=== PATIENT | male | born 1945 | race Caucasian/White ===

== ENCOUNTER → 2017-11-05 09:09 | Outpatient (CLI) | payer MEDICARE, OTHER, SELFPAY ==
--- NOTE | 2017-11-05 | DI.CT.S_ITS ---
PROCEDURE: CT CHEST W CON INDICATIONS: COUGH TECHNIQUE: After the administration of intravenous contrast, 5 mm thick sections acquired from the pulmonary apices to the posterior costophrenic angles. 7 mm thick coronal and sagittal MIP reformats were acquired. For radiation dose reduction, the following was used: automated exposure control, adjustment of mA and/or kV according to patient size. COMPARISON: [facility], , CHEST 2 VIEW, 03/30/2017, 9:47. FINDINGS: Image quality: Excellent. Lungs and pleura: Partially calcified pleural-parenchymal biapical scarring is reidentified. Minimal linear scar in the left lower lobe posteriorly. Remainder of lungs clear. No acute air space opacities. No pleural effusions or pneumothorax. Central and peripheral airways are patent and normal in caliber. Mediastinum: Heart size is normal. Mild coronary artery calcifications. No pericardial effusion. No mediastinal or hilar adenopathy by size criteria. Thoracic aorta and central pulmonary arteries are normal in size. Esophagus is normal in caliber. No hiatal hernia. Bones and chest wall: No suspicious bony lesions. No vertebral body compression fractures. No axillary or supraclavicular adenopathy by size criteria. Thyroid gland contains a 7 mm hypodense nodule on the right. Abdomen: Visualized upper abdominal solid organs appear normal. Upper abdominal bowel loops are normal in caliber. Gallbladder is surgically absent. IMPRESSION: 1. Biapical pleural-parenchymal scarring with calcifications, likely representing prior granulomatous infection, activity of which cannot be determined radiographically. No appreciable interval change is demonstrated considering differences in imaging modalities. 2. No additional cardiopulmonary abnormalities demonstrated. Mild coronary artery calcifications. 3. Status post cholecystectomy. Dictated by: Gerson Castro M.D. on 11/05/2017 at 10:23 Approved by: Gerson Castro M.D. on 11/05/2017 at 10:29
== END ==
PROVIDERS: PCP Internal Medicine; Visit Provider Internal Medicine
DX: R06.00 Dyspnea, unspecified (principal); R05 Cough; I25.10 Atherosclerotic heart disease of native coronary artery without angina pectoris; Z90.49 Acquired absence of other specified parts of digestive tract
CPT/HCPCS: 71250

== ENCOUNTER → 2018-07-11 13:47 | Outpatient (CLI) | payer MEDICARE, OTHER, SELFPAY ==
--- NOTE | 2018-07-11 | DI.ECHO.S_ITS ---
[facility]---------+ [facility] +---------+ : : [address] [address] : : : : [id number] : : : : Phone: [phone]+ Echocardiogram Report + + :Name: JENIFER JOHNSTON Study Date: 07/11/2018 Height: 73 in : :[facility] Weight: 167 lb : : Gender: Male BSA: 2.0 m2 : :: 1945 Age: 72 yrs BP: 160/80 mmHg: :Reason For Study: TACHYCARDIA, ESSENTIAL HYPERTENSION : : Performed By: Rosaline Lamas : :Referring: OBDULIO ESPINOZA : + + Interpretation Summary Normal sinus rhythm Normal LV size, wall thickness, wall motion and LV systolic function. EF is 60-65%. Normal diastolic dysfunction. Borderline LA enlargement; otherwise normal chamber sizes. No significant valvular abnormalities. No prior study available for comparison. Procedure: A two-dimensional transthoracic echocardiogram with color flow and Doppler was performed. The study quality was technically good. There is no prior echocardiogram noted for this patient. The patient was in normal sinus rhythm during the exam. Left Ventricle: The left ventricle is normal in size, wall thickness, and systolic function without any focal wall motion abnormalities. There is no ventricular septal defect visualized. The ejection fraction is estimated to be 60-65%. Diastolic parameters suggest probable normal left ventricular diastolic function and normal filling pressures. Right Ventricle: The right ventricle is normal in size and function. Atria: The left atrium is borderline dilated. Right atrial size is normal. There is no Doppler evidence for an interatrial shunt. Mitral Valve: The mitral valve leaflets are slightly calcified. There is trace mitral regurgitation. Aortic Valve: The aortic valve is normal in structure and function. The aortic valve is slightly calcified. No aortic regurgitation is present. Tricuspid Valve: The tricuspid valve leaflets are thin and pliable. There is mild tricuspid regurgitation. The right ventricular systolic pressure is estimated to be at least 30 mmHg based on an estimated right atrial pressure of 3 mm Hg. Pulmonic Valve: The pulmonic valve is normal in structure and function. There is a trace or physiologic amount of pulmonic regurgitation. Great Vessels: The aortic root is normal size. The ascending aorta is at the upper limits of normal in size. The aortic arch is normal in size. The IVC is of normal diameter and collapses greater than 50% with a sniff. This suggests a low right atrial pressure of 3 mm Hg. Pericardium/ Pleura There is no pericardial effusion. MMode/2D Measurements & Calculations LVIDd: 4.7 cm LVOT diam: 1.9 cm LVIDs: 2.6 cm Ao root diam: 3.6 cm FS: 44.6 % Aortic Jxn: 2.6 cm EPSS: 0.69 cm asc Aorta Diam: 3.4 cm IVSd: 0.90 cm Ao Arch Diam (Prox Trans): 3.0 cm LVPWd: 0.84 cm LV veloz. diameter/BSA (cm/m^2): 2.4 LV sys. diameter/BSA (cm/m^2): 1.3 LA A2 area: 21.4 cm2 RA long axis: 4.9 cm LA A4 area: 19.6 cm2 RA area: 12.7 cm2 LA length (vol): 5.2 cm RA vol: 28.0 ml LA vol: 68.5 ml RA : 14.1 ml/m2 LA vol index: 34.3 ml/m2 IVC diam: 1.7 cm RVD1 (basal): 3.8 cm RVD2 (mid): 2.9 cm TAPSE: 2.8 cm Doppler Measurements & Calculations Ao V2 max: 117.2 cm/sec LVOT Max Benito: 109.8 cm/sec Ao V2 mean: 79.2 cm/sec LV V1 max P.8 mmHg Ao max P.5 mmHg LV V1 VTI: 23.8 cm Ao mean P.9 mmHg LALY(I,D): 2.9 cm2 Ao V2 VTI: 24.1 cm LALY(V,D): 2.8 cm2 sev ratio: 0.99 LALY indexed to BSA (cm^2/m^2): 1.5 MV E max benito: 93.9 cm/sec TR max benito: 257.4 cm/sec MV A max benito: 58.5 cm/sec TR max P.5 mmHg MV E/A: 1.6 PA V2 max: 92.1 cm/sec Med Peak E' Benito: 8.2 cm/sec PA V2 mean: 68.8 cm/sec E/E' med: 11.4 PA mean P.0 mmHg Lat Peak E' Benito: 10.3 cm/sec PA Accel Time: 0.11 sec E/E' lat: 9.1 E/e' average: 10.2 MV dec time: 0.18 sec MV P1/2t: 53.8 msec MV P1/2t max benito: 93.9 cm/sec SV(LVOT): 71.0 ml MVA(P1/2t): 4.1 cm2 Electronically signed by: Zee Braun M.D. on Reading Physician:07/12/2018 03:21 AM
== END ==
PROVIDERS: PCP Internal Medicine; Visit Provider Physician Assistant
DX: I07.1 Rheumatic tricuspid insufficiency (principal); R00.0 Tachycardia, unspecified; I10 Essential (primary) hypertension
CPT/HCPCS: 93306

== ENCOUNTER → 2019-03-18 15:04 | Outpatient (CLI) | payer MEDICARE, OTHER, SELFPAY ==
--- NOTE | 2019-03-18 | DI.US.S_ITS ---
PROCEDURE: US ABD AORTA ANEURYSM SCREEN INDICATIONS: AAA SCREENING TECHNIQUE: Real time scanning was performed of the aorta and iliac arteries, with image documentation. COMPARISON: None. FINDINGS: Aorta: Proximal aortic diameter measures 2.4 cm. Mid-aorta measures 2.0 cm. Distal aortic diameter is 1.7 cm. Iliac arteries: Right common iliac artery measures 1.4 cm. Left common iliac artery measures 1.1 cm. IMPRESSION: Negative examination. No aneurysm Dictated by: Yordy Esparza M.D. on 03/18/2019 at 15:59 Approved by: Yordy Esparza M.D. on 03/18/2019 at 15:59
== END ==
PROVIDERS: PCP Internal Medicine; Visit Provider Internal Medicine
DX: Z13.6 Encounter for screening for cardiovascular disorders (principal)
CPT/HCPCS: 76706

== ENCOUNTER → 2019-06-16 09:56 | Outpatient (CLI) | payer MEDICARE, OTHER, SELFPAY | PROVIDERS: PCP Internal Medicine; Referring Provider Dentist Oral and Maxillofacial Surgery; Visit Provider Family Medicine | DX: L59.8 Other specified disorders of the skin and subcutaneous tissue related to radiation (principal); Z92.3 Personal history of irradiation; J44.9 Chronic obstructive pulmonary disease, unspecified | CPT/HCPCS: 71046; 99203; 99212 ==

== ENCOUNTER → 2019-06-16 11:34 | Outpatient (CLI) | payer MEDICARE, OTHER, SELFPAY ==
--- NOTE | 2019-06-16 | DI.RAD.S_ITS ---
PROCEDURE: XR CHEST 2V INDICATIONS: COPD TECHNIQUE: 2 views of the chest were acquired. COMPARISON: [facility], , CHEST 2 VIEW, 03/30/2017, 9:47. FINDINGS: Surgical changes and devices: None. Lungs and pleura: Lungs are clear. No pleural effusions or pneumothorax. Mediastinum: Mediastinal contours are normal. Heart size is normal. Bones and chest wall: No suspicious bony abnormalities. Soft tissues appear unremarkable. IMPRESSION: Normal for age, source of current shortness of breath symptoms is not seen. Dictated by: Alden Noonan M.D. on 06/16/2019 at 13:10 Approved by: Alden Noonan M.D. on 06/16/2019 at 13:10
== END ==
PROVIDERS: PCP Internal Medicine; Referring Provider Family Medicine; Visit Provider Family Medicine
DX: J44.9 Chronic obstructive pulmonary disease, unspecified (principal)
CPT/HCPCS: 71046

== ENCOUNTER → 2020-05-18 07:57 | Outpatient (CLI) | payer MEDICARE, OTHER, SELFPAY ==
[2020-05-18] MEDS: COVID-19 VACC #1, MRNA(MOD) 100 MCG/0.5 ML VIAL IM (08:04)
== END ==
PROVIDERS: PCP Internal Medicine; Visit Provider Internal Medicine
DX: Z23 Encounter for immunization (principal)
CPT/HCPCS: 0011A; 91301

== ENCOUNTER → 2020-06-15 08:13 | Outpatient (CLI) | payer MEDICARE, OTHER, SELFPAY ==
[2020-06-15] MEDS: COVID-19 VACC #2, MRNA(MOD) 100 MCG/0.5 ML VIAL IM (08:22)
== END ==
PROVIDERS: PCP Internal Medicine; Visit Provider Internal Medicine
DX: Z23 Encounter for immunization (principal)
CPT/HCPCS: 0012A; 91301

== ENCOUNTER 2021-07-25 09:30 | Outpatient (RCR) | payer MEDICARE, OTHER, SELFPAY ==
--- NOTE | 2021-07-11 17:46 | ST.OPIE ---
Addendum entered and electronically signed by Vazquez Wood 07/25/21 15:19: POC Dates: 07/11/21 - 10/06/21 Insurance: Medicare Referring Physician: Dr. Gwyn Griffiths Reason for Referral: Dysphagia, Unspecified Session Start-End Times: 1430 - 1530 Original Note: Visit Care Team Role Provider Type Gwyn Griffiths MD Attending Provider Physician Family Provider Primary Care Provider Referring Provider Specialty: Internal Medicine Address: [address] [place] [address], [address], [facility] Email: [email or web address] Speech-Language Pathology Initial Evaluation [employer]ERIAL[employer]NER Clinical Swallow Evaluation Start: 07/11/21 14:36 Freq: Status: Active Protocol: Document 07/11/21 14:36 OJNI (Rec: 07/11/21 14:55 JONI [id number]) Clinical Swallow Evaluation Patient Information History Pt is a 75-yr-old male with a hx of COPD diagnosed ~8 yrs ago and 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 In 2004 he underwent surgical removal of lymph nodes at left side of neck, had a tracheotomy which as been removed, and received radiation (5x/wk for 4-6 wks) and chemotherapy treatments. He c/o occasional problems with speech and swallow which have become more frequent and noticeable to him in the past 6-9 months, though he reported his thinks it's been present for 2-3 yrs. Since then, he is not able to open jaw as much as he was prior, which increases difficulty eating certain foods, such as a cheeseburger. The pt denied coughing/choking but has occasional difficulty getting foods and liquid down, typically smaller vs bulky foods. He manages this with repeated swallows. He denied trouble swallowing pills, which he swallows dry. There are no foods he avoids d/t swallow difficulties. He does experience occ nasal regurgitation and noted that it sounds like I'm talking through my nose, which was also perceived by the MATERIALS PLANNER. Regarding speech, the pt notes difficulty producing some consonants, reduced rate of speech as per PLOF, and increased effort with speech articulation. Example words that were troublesome were bulk and glass, exhibiting difficulty with /b/ and consonant blends. He also noted that very occasionally, he is unable to produce voice and speech results in whispers . These episodes appear to resolve independently and happen ~once every 3 wks. As a result of these speech challenges, he avoids conversation with others when possible. Subjective Observations The pt arrived on time and provided case history supplemental to medical records. Agreed to target swallow evaluation today with speech evaluation at next session. Reported by Patient Other Symptoms Difficulty swallowing liquids, Difficulty swallowing solids Current Diet Regular,Thin liquids Baseline Feeding Method Independent in self-feeding Objective Assessment Mental Status Alert,Responsive,Cooperative Oral Integrity WFL Dentition Missing teeth Observation of Lips at Rest Right sided weakness/Drooping Pucker Within normal limits Lip Retraction Within normal limits Alternating Pucker/Lip Retraction Within normal limits Tongue Function Mild impairment Observations of Tongue at Rest Within normal limits Tongue Protrusion Deviates to the right Tongue Lateralization Reduced strength Jaw Function Within normal limits Observations of Jaw at Rest Within normal limits Jaw Opening Within normal limits Jaw Closing Within normal limits Jaw Lateralization Within normal limits Hard/Soft Palate Function Mild impairment Observations of Hard/Soft Palate Abnormal uvula Gag Reflex Within normal limits Nasality Hypernasal Phonation Reduced loudness Comment Missing molars on left side. Pt reports this does not interfere with mastication. Food and Liquid Trials Position During Assessment Upright (90 degrees) Liquids Trialed Thin Solids Trialed Puree,Dysphagia Mechanical, Mechanical Soft,Regular Administration Type Self-feeding Oral Impairment Within functional limits Oral Phase Comments Pt mostly masticated on right side d/t missing molars on left side. Pharyngeal Impairment Mildly-Moderately impaired Pharyngeal Phase Comments Multiple swallows required to clear solids from pharynx. Throat clearing was noted x3, twice with solids and once with liquid wash to assist pharyngeal clearance of solids. Fatigue/Endurance Endurance WNL Findings Swallowing Function Oropharyngeal phase dysphagia Severity of Swallow Impairment Mildly-moderately impaired Contributing Factors to Swallow Reduced oral strength/ Impairment coordination/sensation, Mastication inefficiency, Impaired airway protection, Excessive pharyngeal residue Prognosis Good Based on Cognitive status,Family support,Age,Duration of symptoms/severity Comment Discussed POC with the pt, including recommendation of MBS, particularly given the pt 's hx of radiation. The pt was in agreement with this recommendation. Initiated education and training in swallow exercises to improve strength and coordination of pharyngeal musculature to reduce pharyngeal residue and need for multiple swallows. Instructions were provided orally with demonstration and in writing. The pt returned demonstration, performing per instructions. The pt's speech was perceived as mildly imprecise and moderately slow with occasional need for repeated attempts to produce words, particularly those with consonant blends, which he sometimes spelled instead of stating. Vocal resonance was perceived as hypernasal, although elevation of soft palate was observed. Unable to determine extent of palatopharyngeal contact. Will be better observed during MBS . Impact on Safety and Functioning Risk for aspiration Comments Mild risk of aspiration Recommendations Instrumental Assessment Yes Swallowing Treatment Yes Frequency 1x/wk initially, taper over course of treatment. Duration for 12 wks Recommended Solids Regular Recommended Liquids Thin Other Recommendations Add moisture Safety Precautions/Swallowing Remain upright (90 degrees) Recommendations during all oral intake,Small bites and sips when eating, Slow rate; swallow between bites Medication Recommendations As Tolerated Education Patient/Caregiver Education Described results of evaluation,Patient expressed understanding of evaluation, Patient expressed agreement with goals & treatment plans, Patient expressed understanding of safety precautions,Patient expressed understanding of feeding recommendations,Patient requires further education/ training Goals Short-term Goals 1. The pt will participate in Modified Barium Swallow Study to further assess swallow function/safety and to guide POC. 2. The pt will participate in evaluation of motor speech to guide POC. Additional goals to be established after assessment. 3. The pt will use safe swallow strategies to reduce risk of aspiration and increase ease with oral consumption. 4. The pt will perform exercises to improve efficiency of swallow, reduce aspiration, and increase ease with oral consumption. Long-term Goals 1. The pt will improve tolerance of regular textures and thin liquids to WNL.
--- NOTE | 2021-08-01 15:27 | ST.OPDS ---
Visit Care Team Role Provider Type Gwyn Griffiths MD Attending Provider Physician Family Provider Primary Care Provider Referring Provider Address: [address] [place] [address], [address], [place], [address] POLISH MAKER Treatment Note POLISH MAKER Treatment Note Start: 07/25/21 15:14 Freq: Status: Active Protocol: Document 08/01/21 15:26 JONI (Rec: 08/01/21 15:27 JONI [id number]) Speech Pathology Treatment Note Setting Treatment Setting Outpatient Care Visit Type Note Type Discharge Summary General Information Patient History Pt is a 75-yr-old male with a hx of COPD diagnosed ~8 yrs ago and 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 In 2004 he underwent surgical removal of lymph nodes at left side of neck, had a tracheotomy which as been removed, and received radiation (5x/wk for 4-6 wks) and chemotherapy treatments. He c/o occasional problems with speech and swallow which have become more frequent and noticeable to him in the past 6-9 months, though he reported his thinks it's been present for 2-3 yrs. Since then, he is not able to open jaw as much as he was prior, which increases difficulty eating certain foods, such as a cheeseburger. The pt denied coughing/choking but has occasional difficulty getting foods and liquid down, typically smaller vs bulky foods. He manages this with repeated swallows. He denied trouble swallowing pills, which he swallows dry. There are no foods he avoids d/t swallow difficulties. He does experience occ nasal regurgitation and noted that it sounds like I'm talking through my nose, which was also perceived by the POLISH MAKER. Regarding speech, the pt notes difficulty producing some consonants, reduced rate of speech as per PLOF, and increased effort with speech articulation. Example words that were troublesome were bulk and glass, exhibiting difficulty with /b/ and consonant blends. He also noted that very occasionally, he is unable to produce voice and speech results in whispers . These episodes appear to resolve independently and happen ~once every 3 wks. As a result of these speech challenges, he avoids conversation with others when possible. Subjective Observations/Patient Presentation The pt called this clinic the day after his last appt and requested cancelation of all appts, stating he did not need therapy. Goals have not been met. Pt is discharged from services per his request. Chief Complaint(s) Speech,Swallowing,Voice Objective Short Term Goals 1. The pt will participate in Modified Barium Swallow Study to further assess swallow function/safety and to guide POC. 2. The pt will participate in evaluation of motor speech to guide POC. Additional goals to be established after assessment. 3. The pt will use safe swallow strategies to reduce risk of aspiration and increase ease with oral consumption. 4. The pt will perform exercises to improve efficiency of swallow, reduce aspiration, and increase ease with oral consumption. Fpc Goals 1. The pt will improve tolerance of regular textures and thin liquids to WNL. 2. The pt will produce continuous phonation and vocal quality WNL in conversation to improve his ability to communicate effectively with others in various communication settings. Plan Therapy Recommendations Discharge from Speech Therapy
== END 2021-08-04 14:19 ==
LOC: SP 09:30
PROVIDERS: Family Provider Internal Medicine; PCP Internal Medicine; Referring Provider Internal Medicine; Visit Provider Internal Medicine
DX: R13.10 Dysphagia, unspecified (principal); R47.1 Dysarthria and anarthria
CPT/HCPCS: 92507; 92524; 92526; 92610

== ENCOUNTER → 2021-12-05 11:08 | Outpatient (CLI) | payer MEDICARE, OTHER, SELFPAY ==
[2021-12-11 10:46] LABS: Percent Free Testosterone 3.58 % (1.50-4.20); Testosterone Free 9.39 ng/dL (5.00-21.00); Testosterone Total 262.3 ng/dL (264.0-916.0)
== END ==
PROVIDERS: Family Provider Internal Medicine; PCP Internal Medicine; Referring Provider Internal Medicine; Visit Provider Internal Medicine
DX: N52.9 Male erectile dysfunction, unspecified (principal)
CPT/HCPCS: 36415; 84402; 84403

== ENCOUNTER → 2022-01-19 08:10 | Outpatient (CLI) | payer MEDICARE, OTHER, SELFPAY ==
--- NOTE | 2022-01-19 08:13 | DI.RAD.S_ITS ---
PROCEDURE: XR KUB INDICATIONS: kidney stones TECHNIQUE: One view of the abdomen acquired. COMPARISON: [facility], CT, CT ABDOMEN PELVIS WITH CONTRAST, 12/28/2017, 14:59. FINDINGS: Surgical changes and devices: Right upper quadrant clips are present. Bowel: Bowel gas pattern is normal. Soft tissues: No suspicious abdominal calcifications. No definitive stones are noted overlying the renal shadows. Multiple rounded areas of calcification are noted overlying the bladder shadow. There is a confluent area of calcification within the posterior right lateral bladder in 2018. Visualized solid organ contours appear normal in size. Bones: No suspicious bony lesions. IMPRESSION: No calcifications overlying the renal shadows. Multiple calcifications are noted overlying the bladder shadow which could represent multiple passed stones or other sources of bladder calcification. Additionally, some may represent phleboliths. They appear more numerous when compared to prior exam in 2018. CT is recommended as clinically indicated for further evaluation. Dictated by: Christel Multani M.D. on 01/19/2022 at 11:52 Approved by: Christel Multani M.D. on 01/19/2022 at 11:54
[2022-01-25 07:36] LABS: Testosterone Fr+Wkly bound 40.8 ng/dL (40.0-250.0); Testosterone, Total 370.6 ng/dL (264.0-916.0)
== END ==
PROVIDERS: Family Provider Internal Medicine; PCP Internal Medicine; Referring Provider Urology; Visit Provider Urology
DX: N20.0 Calculus of kidney (principal); N52.9 Male erectile dysfunction, unspecified
CPT/HCPCS: 36415; 74018; 84403

== ENCOUNTER → 2022-01-26 10:37 | Outpatient (CLI) | payer MEDICARE, OTHER, SELFPAY ==
[2022-02-08 11:22] LABS: Testosterone % Fr + Wkly bound 12.6 % (9.0-46.0); Testosterone Fr+Wkly bound 46.8 ng/dL (40.0-250.0); Testosterone, Total 371.2 ng/dL (264.0-916.0)
== END ==
PROVIDERS: Family Provider Internal Medicine; PCP Internal Medicine; Referring Provider Urology; Visit Provider Urology
DX: N52.9 Male erectile dysfunction, unspecified (principal)
CPT/HCPCS: 36415; 84403

== ENCOUNTER → 2022-03-07 13:11 | Outpatient (CLI) | payer MEDICARE, OTHER, SELFPAY ==
--- NOTE | 2022-03-07 13:13 | DI.CT.S_ITS ---
PROCEDURE: CT PEL WO CON INDICATIONS: ?bladder calc TECHNIQUE: 5 mm thick sections acquired from the iliac crests to the symphysis. 5 mm coronal and sagittal reformats were then performed. For radiation dose reduction, the following was used: automated exposure control, adjustment of mA and/or kV according to patient size. No IV or oral contrast administered. COMPARISON: [facility], CR, XR KUB, 01/19/2022, 8:15. [facility], CT, CT ABDOMEN PELVIS WITH CONTRAST, 12/28/2017, 14:59. FINDINGS: Image quality: Adequate. Peritoneum and bowel: No free air or free fluid. Mild sigmoid colonic diverticulosis without evidence of acute diverticulitis. Genitourinary: Numerous (at least 10) small/subcentimeter stones present within the urinary bladder. Nonspecific coarse calcifications are also present within the prostate gland. The prostate gland and seminal vesicles are not well evaluated by CT. Nodes and vessels: No iliac, pelvic, or inguinal adenopathy by size criteria. Iliac vessels demonstrate normal size. Bones: No acute fracture visualized. IMPRESSION: Numerous small stones are present within the urinary bladder. Dictated by: Jb De Leon M.D. on 03/08/2022 at 10:07 Approved by: Jb De Leon M.D. on 03/08/2022 at 10:12
== END ==
PROVIDERS: Family Provider Internal Medicine; PCP Internal Medicine; Referring Provider Urology; Visit Provider Urology
DX: N20.0 Calculus of kidney (principal); N21.0 Calculus in bladder; K57.30 Diverticulosis of large intestine without perforation or abscess without bleeding
CPT/HCPCS: 72192

== ENCOUNTER → 2022-04-25 14:04 | Outpatient (CLI) | payer MEDICARE, OTHER, SELFPAY ==
[2022-04-25 15:24] LABS: COVID19 -Nasal RAPID Negative (Negative)
== END ==
PROVIDERS: Family Provider Internal Medicine; PCP Internal Medicine; Visit Provider Urology
DX: Z20.822 Contact with and (suspected) exposure to COVID-19 (principal)
CPT/HCPCS: 87635

== ENCOUNTER 2022-04-25 14:14 | Day surgery (SDC) | payer MEDICARE, OTHER, SELFPAY ==
[2022-04-21 10:16] VITALS: BMI 22.8
[2022-04-25] VITALS (8 sets, daily range): BP systolic 127–165; BP diastolic 76–102; PULSE 89–102; RESP 9–16; TEMP 36.2–36.3; O2SAT 96–97; BMI 22.8
[2022-04-25] MEDS: LACTATED RINGERS 1,000 ML 21 ML IV ×2 (14:33→17:01)
--- NOTE | 2022-04-25 15:08 | SUR.PREOP ---
AWAITING COVID RESULT. WAS DONE AT UROLOGY OFFICE AT 1400 LEGAL BILLING COORDINATOR
--- NOTE | 2022-04-25 15:35 | PM.PREOP ---
Pre-operative Note COVID-19 COVID-19 status: Negative Result date/Date tested (Pos, Neg/Pending): 04/25/22 Criteria for continued procedure: Delay expected to result in less-positive ultimate med/surg outcome and Non-surgical alternatives not available or appropriate per current SOC Interval Note History & Physical reviewed/Exam performed by Physician: Yes Changes to H&P: No
[2022-04-25] MEDS: CEFAZOLIN 2 GM/100 ML PREMIX 100 ML IV (16:05)
[2022-04-25] MEDS: LIDOCAINE 2% (GLYDO) 6 ML GEL TOP (16:15)
--- NOTE | 2022-04-25 16:25 | SUR.OPER ---
Lithotomy on padded OR bed, head on pillow, arms secured on padded arm boards at <90 degrees abduction. Legs secured in padded yellow fins stirrups.
--- NOTE | 2022-04-25 17:17 | PM.OP.1 ---
Procedure & Clinicians Procedure: Cystoscopy with mechanical cystolitholapaxy and evacuation of bladder calculi and fragments. Same procedure as scheduled: Yes Indications: This is a 76-year-old male presented with complaints of bladder outlet obstruction and hematuria. He was found to have numerous calculi in his bladder. He would previously had a stone but he had many many many stones. Most under a cm. Probably numbering 50. Patient presents this time for cystoscopy evacuation of stones mechanical and or laser cystolitholapaxy. Surgeon: Parminder Johnson Click Yes if Unassisted: Yes Anesthesia Type: General Operative Notes Findings: Urethral normal along its length. Prostate shows moderate approaching severe obstructive character with a moderate-sized median lobe. The bladder exhibits severe trabeculation cellules banding small diverticula and innumerable dark brown stones. Most under a cm but ranging in size from 3-4 mm up. They would not pass through the stone without ?crushing?. Had the end of the procedure it appeared that all fragments had been evacuated. Because the median lobe in the varicosities there was some bleeding which was controlled with a Bugbee electrode. Because the median lobe and the manipulation that was required a Gill catheter will be placed overnight the patient will come tomorrow for voiding trial. No other abnormalities were noted in the bladder. In the were no complications Closure Type: not applicable Specimen(s): none sent (Bladder stones and fragments) Applied: catheter (20 [place] 5 cc Gill catheter 13 cc in the balloon) Estimated Blood Loss (mL): 10 Blood products transfused: none Procedure in detail: Procedure in detail: After informed consent was obtained, the patient was identified and brought to the operating room where he is placed in a supine position on the table. Patient then had anesthesia induced and maintained. Ensuring an adequate level of anesthesia the patient was transitioned to the lithotomy position where he was prepped, draped, prepared for transfer urethral procedure. After prepping draping time-out ensuring an adequate level of anesthesia a 22 [place] cystoscope was passed through the urethra prostate and bladder were cystoscopy was performed with 30 and 70 degree lens. Then using the 12 degree lens and the mechanical lithotrite after having try to evacuate the stones the stones were then grasped in turn and ?crushed?. This was alternated with evacuation of the stones by flushing. As this proceeded the varicosities on the median lobe bled and therefore Bugbee electrode was inserted and these were controlled. Then each of the muscle bands of the detrusor had stone fragments evacuated and this was done from top to bottom side to side until all stone fragments were evacuated. With this done the stones were collected to be sent for compositional analysis. The bladder was left full and the 20 [place] catheter was passed through the urethra and into the bladder without difficulty the balloon was filled with 13 cc of sterile water and the catheter was placed to gravity drainage. Hemostasis was good there were no complications and the patient tolerated the procedure well at this point he was awakened taken to postanesthesia care unit. Complications: none Post-operative Condition: stable Disposition: PACU Plan for aftercare: Discharge to home patient to follow-up my office in the morning for catheter removal and voiding trial
[2022-04-25] MEDS: PHENAZOPYRIDINE 100 MG TABLET 200 MG PO (17:34)
[2022-04-25] MEDS: OXYBUTYNIN 5 MG TABLET PO (17:34)
--- NOTE | 2022-04-25 19:13 | SUR.PHASEI ---
1745: Noted when giving patient a cup of water that he had a swollen right upper lip. Per patient this was not there prior to surgery. On examination it was swollen and had a non open red streak on it.
[2022-04-29 21:39] LABS: Ca oxalate dihydrate 60 % (.); Ca oxalate monohydr 40 % (.); Size 5x7 mm (.)
== END 2022-04-25 18:49 | disposition home or self-care (01) ==
PROVIDERS: Family Provider Internal Medicine; PCP Internal Medicine; Referring Provider Urology; Visit Provider Urology
PROC: 0TCB8ZZ Extirpation of Matter from Bladder, Via Natural or Artificial Opening Endoscopic (ICD-10-PCS; CPT 52317; principal; 2022-04-25 15:30)
DX: N21.0 Calculus in bladder (principal); N40.1 Benign prostatic hyperplasia with lower urinary tract symptoms; N13.8 Other obstructive and reflux uropathy; Z20.822 Contact with and (suspected) exposure to COVID-19
CPT/HCPCS: 52317; 82365; 82962; 87635; C9803; J0690; J2405; J2704; J3010

== ENCOUNTER → 2022-04-26 15:18 | Outpatient (CLI) | payer MEDICARE, OTHER, SELFPAY | PROVIDERS: Family Provider Internal Medicine; PCP Internal Medicine; Visit Provider Urology | DX: N40.1 Benign prostatic hyperplasia with lower urinary tract symptoms (principal); N13.8 Other obstructive and reflux uropathy | CPT/HCPCS: 51702; 51798; 87086 ==

== ENCOUNTER → 2022-05-09 08:17 | Outpatient (CLI) | payer MEDICARE, OTHER, SELFPAY | PROVIDERS: Family Provider Internal Medicine; PCP Internal Medicine; Visit Provider Urology | DX: N21.0 Calculus in bladder (principal); N40.1 Benign prostatic hyperplasia with lower urinary tract symptoms; N13.8 Other obstructive and reflux uropathy; R33.9 Retention of urine, unspecified; Z87.442 Personal history of urinary calculi | CPT/HCPCS: 51798; 81002; 87086; 99214 ==

== ENCOUNTER → 2022-06-23 09:01 | Outpatient (CLI) | payer MEDICARE, OTHER, SELFPAY ==
--- NOTE | 2022-06-23 09:03 | DI.ECHO.S_ITS ---
[facility]---------+ [facility] +---------+ : : [address] [place] : : : : [id number] : : : : Phone: [phone] +---------+ Echocardiogram Report + + :Name: JENIFER JOHNSTON Study Date: 06/23/2022 Height: 72 in : :[facility] ReadingLocation: Weight: 163 lb : : Gender: Male BSA: 2.0 m2 : :: 1945 Age: 76 yrs BP: 163/81 mmHg: :Reason For Study: HYpertension : :Ordering Physician: ISMAEL, : :ALEX Jimenez Performed By: Sandrita Gutierrez : :Referring: ALEX GUEVARA : + + Interpretation Summary The ejection fraction is estimated to be 60-65%. Diastolic parameters suggest probable normal left ventricular diastolic function and normal filling pressures. The right ventricular systolic function is normal. The right ventricular systolic pressure is estimated to be at least 45.5 mmHg based on an estimated right atrial pressure of 15 mm Hg. The right ventricle is mild to moderately dilated. The right atrium is moderately dilated. There is mild tricuspid regurgitation. Procedure: A two-dimensional transthoracic echocardiogram with color flow and Doppler was performed. The study quality was technically good. The patient was in sinus rhythm with heart rates between 63-72 bpm during the exam. Left Ventricle: The left ventricle is normal in size and wall thickness. The ejection fraction is estimated to be 60-65%. There are no obvious focal wall motion abnormalities noted but poor endocardial definition reduces the sensitivity for the detection of such. Diastolic parameters suggest probable normal left ventricular diastolic function and normal filling pressures. Right Ventricle: The right ventricle is mild to moderately dilated. The right ventricular systolic function is normal. Atria: The left atrial size is normal. The right atrium is moderately dilated. There is no Doppler evidence for an interatrial shunt. Mitral Valve: The mitral valve is normal in structure and function. The mitral valve leaflets are slightly calcified. There is trace mitral regurgitation. Aortic Valve: The aortic valve is trileaflet. The aortic valve opens well. There is mild aortic valve sclerosis. There is no hemodynamically significant valvular aortic stenosis. There is trace aortic regurgitation. Tricuspid Valve: The tricuspid valve is normal in structure and function. There is mild tricuspid regurgitation. The right ventricular systolic pressure is estimated to be at least 45.5 mmHg based on an estimated right atrial pressure of 15 mm Hg. Pulmonic Valve: The pulmonic valve leaflets are thin and pliable; valve motion is normal. There is a trace or physiologic amount of pulmonic regurgitation. Great Vessels: The aortic root is normal size. The ascending aorta is normal in size. The pulmonary artery is normal size. The IVC is dilated (diameter is greater than 2.1 cm) and it collapses less than 50% with a sniff. This suggests a high right atrial pressure of 15 mm Hg. Pericardium/ Pleura There is no pericardial effusion. There is no pleural effusion. MMode/2D Measurements & Calculations LVIDd: 4.8 cm LVOT diam: 2.0 cm LVIDs: 3.1 cm Ao root diam: 3.6 cm FS: 36.1 % asc Aorta Diam: 3.2 cm EPSS: 0.27 cm IVSd: 0.79 cm LVPWd: 0.80 cm LV veloz. diameter/BSA (cm/m^2): 2.5 LV sys. diameter/BSA (cm/m^2): 1.6 LA A2 area: 16.5 cm2 RA long axis: 5.0 cm LA A4 area: 18.5 cm2 RA area: 21.4 cm2 LA length (vol): 5.0 cm RA vol: 77.8 ml LA vol: 52.2 ml RA : 39.8 ml/m2 LA vol index: 26.7 ml/m2 IVC diam: 2.3 cm RVD1 (basal): 4.9 cm TAPSE: 2.5 cm Doppler Measurements & Calculations Ao V2 max: 119.8 cm/sec LVOT Max Benito: 96.1 cm/sec Ao V2 mean: 84.8 cm/sec LV V1 max P.7 mmHg Ao max P.7 mmHg LV V1 VTI: 21.7 cm Ao mean P.2 mmHg LALY(I,D): 2.6 cm2 Ao V2 VTI: 27.6 cm LALY(V,D): 2.6 cm2 sev ratio: 0.79 LALY indexed to BSA (cm^2/m^2): 1.3 MV E max benito: 93.6 cm/sec TR max benito: 276.2 cm/sec MV A max benito: 57.9 cm/sec TR max P.5 mmHg MV E/A: 1.6 PA V2 max: 89.9 cm/sec Med Peak E' Benito: 9.5 cm/sec PA V2 mean: 68.3 cm/sec E/E' med: 9.8 PA mean P.0 mmHg Lat Peak E' Benito: 9.6 cm/sec E/E' lat: 9.8 E/e' average: 9.8 MV dec time: 0.26 sec MVA(VTI): 2.4 cm2 MV V2 mean: 61.5 cm/sec SV(LVOT): 70.5 ml MV mean P.7 mmHg MV V2 VTI: 29.0 cm Reading Physician:RUPA
[2022-06-23 10:09] LABS: Add Manual Diff / Slide Review NO; Basophils Absolute Auto 0 /uL (0-100); Basophils Percent Auto 0.6 % (0-2); Eosinophils Absolute Auto 200 /uL (0-450); Eosinophils Percent Auto 2.7 % (2-4); Hematocrit 43.2 % (41-53); Hemoglobin 14.4 g/dL (13.5-17.5); Lymphocytes Absolute Auto 1000 /uL (1100-4500); Mean Corpuscular HGB Conc 33.4 % (30-36); Mean Corpuscular Hemoglobin 32.8 PG (26-34); Monocytes Absolute Auto 600 /uL (0-900); Monocytes Percent Auto 10.5 % (3-14); Neutrophils Absolute Auto 4000 /uL (1500-7000); Neutrophils Percent Auto 69.2 % (50-75); Platelet Count 206 X10^3/uL (150-400); Red Blood Cell Count 4.41 X10^6/uL (4.5-5.9); Red Cell Distribution Width 14.4 % (11.6-14.8); White Blood Cell Count 5.8 X10^3/uL (4.5-11.0)
[2022-06-23 10:52] LABS: Alanine Aminotransferase 27 IU/L (<50); Albumin Globulin Ratio 1.4 (1.0-2.8); Alkaline Phosphatase 48 U/L (38-126); Aspartate Aminotransferase 32 IU/L (17-59); BUN Creatinine Ratio 15.3 (6-22); Bilirubin Total 1.1 mg/dL (0.2-1.3); Blood Urea Nitrogen 13 mg/dL (9-20); Calcium 9.3 mg/dL (8.4-10.2); Carbon Dioxide 31 mmol/L (22-32); Chloride 102 mmol/L (98-107); Cholesterol 179 mg/dL (140-199); Estimated Glomerular Filt Rate > 60 mL/min (>60); Globulin 2.8 g/dL (1.7-4.1); Glucose 104 mg/dL (80-110); HDL Cholesterol 107 mg/dL (40-60); HEMOLYSIS < 15 (0-50); LDL Cholesterol Calculated 63 mg/dL (<100); Potassium 4.5 mmol/L (3.4-5.1); Sodium 140 mmol/L (137-145); Total Protein 6.8 g/dL (6.3-8.2); Triglycerides 46 mg/dL (35-150)
[2022-06-23 11:16] LABS: TSH w/ Reflex to FT4 2.88 uIU/mL (0.47-4.68)
== END ==
PROVIDERS: Family Provider Internal Medicine; PCP Internal Medicine; Referring Provider Internal Medicine; Visit Provider Internal Medicine
DX: I08.2 Rheumatic disorders of both aortic and tricuspid valves (principal); N40.1 Benign prostatic hyperplasia with lower urinary tract symptoms; I10 Essential (primary) hypertension; N13.8 Other obstructive and reflux uropathy; R13.10 Dysphagia, unspecified
CPT/HCPCS: 36415; 80053; 80061; 84443; 85025; 93306

== ENCOUNTER → 2023-02-22 16:58 | Outpatient (CLI) | payer MEDICARE, OTHER, SELFPAY ==
[2023-02-22 18:10] LABS: Add Manual Diff / Slide Review NO; Basophils Absolute Auto 0 /uL (0-100); Basophils Percent Auto 0.8 % (0-2); Eosinophils Absolute Auto 100 /uL (0-450); Eosinophils Percent Auto 1.1 % (2-4); Hematocrit 39.7 % (41-53); Hemoglobin 13.6 g/dL (13.5-17.5); Lymphocytes Absolute Auto 900 /uL (1100-4500); Lymphocytes Percent Auto 17.4 % (25-40); Mean Corpuscular HGB Conc 34.3 % (30-36); Mean Corpuscular Volume 99.3 fL (80-100); Monocytes Absolute Auto 600 /uL (0-900); Monocytes Percent Auto 10.5 % (3-14); Neutrophils Absolute Auto 3800 /uL (1500-7000); Neutrophils Percent Auto 70.2 % (50-75); Platelet Count 212 X10^3/uL (150-400); Red Cell Distribution Width 14.9 % (11.6-14.8); White Blood Cell Count 5.4 X10^3/uL (4.5-11.0)
[2023-02-22 18:31] LABS: Alanine Aminotransferase 25 IU/L (<50); Albumin 4.4 g/dL (3.5-5.0); Albumin Globulin Ratio 1.4 (1.0-2.8); Alkaline Phosphatase 43 U/L (38-126); Aspartate Aminotransferase 31 IU/L (17-59); BUN Creatinine Ratio 22.1 (6-22); Bilirubin Total 0.4 mg/dL (0.2-1.3); Blood Urea Nitrogen 21 mg/dL (9-20); Calcium 9.7 mg/dL (8.4-10.2); Carbon Dioxide 27 mmol/L (22-32); Chloride 99 mmol/L (98-107); Estimated Glomerular Filt Rate > 60 mL/min (>60); Globulin 3.2 g/dL (1.7-4.1); Glucose 90 mg/dL (80-110); HEMOLYSIS < 15 (0-50); Potassium 4.2 mmol/L (3.4-5.1); Sodium 136 mmol/L (137-145); Total Protein 7.6 g/dL (6.3-8.2)
[2023-02-22 19:00] LABS: TSH w/ Reflex to FT4 3.39 uIU/mL (0.47-4.68)
== END ==
PROVIDERS: Family Provider Internal Medicine; PCP Internal Medicine; Referring Provider Internal Medicine; Visit Provider Internal Medicine
DX: I10 Essential (primary) hypertension (principal); J44.9 Chronic obstructive pulmonary disease, unspecified; I95.9 Hypotension, unspecified; D64.9 Anemia, unspecified
CPT/HCPCS: 36415; 80053; 84443; 85025

== ENCOUNTER → 2023-05-10 15:53 | Outpatient (CLI) | payer MEDICARE, OTHER, SELFPAY ==
[2023-05-10 16:56] LABS: Add Manual Diff / Slide Review NO; Basophils Absolute Auto 0 /uL (0-100); Basophils Percent Auto 0.6 % (0-2); Eosinophils Absolute Auto 100 /uL (0-450); Eosinophils Percent Auto 1.3 % (2-4); Hematocrit 42.1 % (41-53); Hemoglobin 14.2 g/dL (13.5-17.5); Lymphocytes Absolute Auto 900 /uL (1100-4500); Mean Corpuscular HGB Conc 33.8 % (30-36); Mean Corpuscular Hemoglobin 33.9 PG (26-34); Mean Corpuscular Volume 100.5 fL (80-100); Monocytes Absolute Auto 600 /uL (0-900); Monocytes Percent Auto 8.7 % (3-14); Neutrophils Absolute Auto 5100 /uL (1500-7000); Neutrophils Percent Auto 76.4 % (50-75); Platelet Count 223 X10^3/uL (150-400); Red Blood Cell Count 4.19 X10^6/uL (4.5-5.9); Red Cell Distribution Width 12.8 % (11.6-14.8); White Blood Cell Count 6.6 X10^3/uL (4.5-11.0)
[2023-05-10 17:28] LABS: Alanine Aminotransferase 23 IU/L (<50); Albumin 4.4 g/dL (3.5-5.0); Albumin Globulin Ratio 1.4 (1.0-2.8); Alkaline Phosphatase 45 U/L (38-126); Aspartate Aminotransferase 33 IU/L (17-59); BUN Creatinine Ratio 18.3 (6-22); Bilirubin Total 1.2 mg/dL (0.2-1.3); Blood Urea Nitrogen 13 mg/dL (9-20); Calcium 9.7 mg/dL (8.4-10.2); Carbon Dioxide 28 mmol/L (22-32); Chloride 102 mmol/L (98-107); Estimated Glomerular Filt Rate > 60 mL/min (>60); Globulin 3.1 g/dL (1.7-4.1); Glucose 113 mg/dL (80-110); HEMOLYSIS < 15 (0-50); Potassium 4.2 mmol/L (3.4-5.1); Sodium 139 mmol/L (137-145); Total Protein 7.5 g/dL (6.3-8.2)
[2023-05-10 17:59] LABS: TSH w/ Reflex to FT4 3.01 uIU/mL (0.47-4.68)
== END ==
PROVIDERS: Family Provider Internal Medicine; PCP Internal Medicine; Referring Provider Internal Medicine; Visit Provider Internal Medicine
DX: I10 Essential (primary) hypertension (principal)
CPT/HCPCS: 36415; 80053; 84443; 85025

== ENCOUNTER → 2023-05-23 13:42 | Outpatient (CLI) | payer MEDICARE, OTHER, SELFPAY | PROVIDERS: Family Provider Internal Medicine; PCP Internal Medicine; Referring Provider Internal Medicine; Visit Provider Internal Medicine | DX: R00.2 Palpitations (principal) | CPT/HCPCS: 93246 ==

== ENCOUNTER → 2023-06-07 09:08 | Outpatient (CLI) | payer MEDICARE, OTHER, SELFPAY ==
--- NOTE | 2023-06-07 09:09 | DI.ECHO.S_ITS ---
[facility] +---------+ [facility] +---------+ : : [address] : : : : [id number] : : : : Phone: [phone] +---------+ Echocardiogram Report + + :Name: JENIFER JOHNSTON Study Date: 06/07/2023 Height: 73 in : :[facility] ReadingLocation: Weight: 160 lb : : Gender: Male BSA: 2.0 m2 : :: 1945 Age: 77 yrs BP: 157/80 mmHg: :Reason For Study: MURMUR : :Ordering Physician: ISMAEL, : :ALEX Jimenez Performed By: Sandrita Casanova : :Referring: ALEX GUEVARA : + + Interpretation Summary 1) Normal left ventricular thickness, size, wall motion, and systolic function (EF 60-65%). 2) Normal right ventricular size and function. 3) No significant valvular abnormalities. 4) The right ventricular systolic pressure is estimated to be at least 40 mmHg based on an estimated right atrial pressure of 8 mm Hg. 5) Compared to the Echo done 06/23/2022, no significant change. Procedure: A two-dimensional transthoracic echocardiogram with color flow and Doppler was performed. The study quality was technically adequate. Comparison is made with the echocardiogram of 06/23/2022. The patient was in sinus rhythm with heart rates between 62-73 bpm during the exam. Left Ventricle: The left ventricle is normal in size and wall thickness. The ejection fraction is estimated to be 60-65%. Left ventricular systolic function is normal. Left ventricular wall motion is normal. Diastolic parameters suggest a relaxation abnormality of the left ventricle, consistent with probable normal filling pressures. Right Ventricle: The right ventricle is normal in size and function. Atria: The left atrial size is normal. Right atrial size is normal. There is no Doppler evidence for an interatrial shunt. Mitral Valve: The mitral valve is normal in structure and function. There is trace mitral regurgitation. Aortic Valve: The aortic valve is trileaflet. The aortic valve opens well. There is no aortic valve stenosis. No aortic regurgitation is present. Tricuspid Valve: The tricuspid valve is normal in structure and function. There is trace tricuspid regurgitation. The right ventricular systolic pressure is estimated to be at least 40 mmHg based on an estimated right atrial pressure of 8 mm Hg. Pulmonic Valve: The pulmonic valve leaflets are thin and pliable; valve motion is normal. There is no pulmonic valvular regurgitation. Great Vessels: The aortic root is normal size. The dimensions of the ascending aorta are normal. The IVC is dilated (diameter is greater than 2.1 cm) yet it collapses greater than 50% with a sniff. This suggests a right atrial pressure of 8 mm Hg. Pericardium/ Pleura There is no pericardial effusion. There is no pleural effusion. MMode/2D Measurements & Calculations LVIDd: 4.6 cm LVOT diam: 2.1 cm LVIDs: 3.2 cm Ao root diam: 3.3 cm FS: 31.1 % asc Aorta Diam: 3.1 cm IVSd: 0.86 cm Ao Arch Diam (Prox Trans): 2.5 cm LVPWd: 0.87 cm LV veloz. diameter/BSA (cm/m^2): 2.4 LV sys. diameter/BSA (cm/m^2): 1.6 LA A2 area: 19.5 cm2 RA long axis: 5.1 cm LA A4 area: 14.4 cm2 RA area: 16.3 cm2 LA length (vol): 4.3 cm RA vol: 44.5 ml LA vol: 55.4 ml RA : 22.8 ml/m2 LA vol index: 28.3 ml/m2 IVC diam: 2.5 cm RVD1 (basal): 3.9 cm TAPSE: 2.3 cm Doppler Measurements & Calculations Ao V2 max: 129.7 cm/sec LVOT Max Benito: 110.1 cm/sec Ao V2 mean: 94.3 cm/sec LV V1 max P.8 mmHg Ao max P.7 mmHg LV V1 VTI: 24.7 cm Ao mean P.9 mmHg LALY(I,D): 2.8 cm2 Ao V2 VTI: 29.4 cm LALY(V,D): 2.9 cm2 sev ratio: 0.84 LALY indexed to BSA (cm^2/m^2): 1.4 MV E max benito: 87.2 cm/sec TR max benito: 283.6 cm/sec MV A max benito: 53.5 cm/sec TR max P.2 mmHg MV E/A: 1.6 PA V2 max: 90.6 cm/sec Med Peak E' Benito: 8.2 cm/sec PA V2 mean: 66.2 cm/sec E/E' med: 10.6 PA mean P.9 mmHg Lat Peak E' Benito: 8.2 cm/sec PA pr(Accel): 24.2 mmHg E/E' lat: 10.7 E/e' average: 10.6 MV dec time: 0.21 sec SV(OT): 83.5 ml Reading Physician:01:09 PM
== END ==
LOC: ECHO 09:09
PROVIDERS: Family Provider Internal Medicine; PCP Internal Medicine; Referring Provider Internal Medicine; Visit Provider Internal Medicine
DX: R01.1 Cardiac murmur, unspecified (principal)
CPT/HCPCS: 93306

== ENCOUNTER → 2024-09-04 15:28 | Outpatient (CLI) | payer MEDICARE, OTHER, SELFPAY ==
[2024-09-04 16:27] LABS: Add Manual Diff / Slide Review NO; Basophils Absolute Auto 0 /uL (0-100); Basophils Percent Auto 0.4 % (0-2); Eosinophils Absolute Auto 100 /uL (0-450); Hemoglobin 14.9 g/dL (13.5-17.5); Lymphocytes Absolute Auto 1300 /uL (1100-4500); Mean Corpuscular HGB Conc 33.7 % (30-36); Mean Corpuscular Hemoglobin 33.4 PG (26-34); Mean Corpuscular Volume 98.9 fL (80-100); Monocytes Absolute Auto 700 /uL (0-900); Monocytes Percent Auto 7.6 % (3-14); Neutrophils Absolute Auto 7300 /uL (1500-7000); Platelet Count 244 X10^3/uL (150-400); Red Blood Cell Count 4.45 X10^6/uL (4.5-5.9); Red Cell Distribution Width 13.8 % (11.6-14.8); White Blood Cell Count 9.4 X10^3/uL (4.5-11.0)
[2024-09-04 16:46] LABS: Alanine Aminotransferase 24 IU/L (<50); Albumin 4.6 g/dL (3.5-5.0); Albumin Globulin Ratio 1.7 (1.0-2.8); Alkaline Phosphatase 46 U/L (38-126); Aspartate Aminotransferase 34 IU/L (17-59); BUN Creatinine Ratio 18.7 (6-22); Bilirubin Total 1.1 mg/dL (0.2-1.3); Blood Urea Nitrogen 17 mg/dL (9-20); Calcium 9.6 mg/dL (8.4-10.2); Carbon Dioxide 30 mmol/L (22-32); Chloride 102 mmol/L (98-107); Estimated Glomerular Filt Rate > 60 mL/min (>60); Globulin 2.7 g/dL (1.7-4.1); Glucose 97 mg/dL (70-99); HEMOLYSIS < 15 (0-50); Potassium 4.6 mmol/L (3.4-5.1); Sodium 141 mmol/L (137-145); Total Protein 7.3 g/dL (6.3-8.2)
[2024-09-04 17:17] LABS: TSH w/ Reflex to FT4 1.02 uIU/mL (0.47-4.68)
== END ==
PROVIDERS: Family Provider Internal Medicine; PCP Internal Medicine; Referring Provider Internal Medicine; Visit Provider Internal Medicine
DX: I10 Essential (primary) hypertension (principal); D64.9 Anemia, unspecified; E03.9 Hypothyroidism, unspecified
CPT/HCPCS: 36415; 80053; 84443; 85025